=== PATIENT | female | born 1950 | race Caucasian/White ===

== ENCOUNTER 2019-11-27 13:26 | Day surgery (SDC) | payer MEDICARE, OTHER ==
[~2019-11-27] VITALS: Ht 157.5 cm; Wt 57.4 kg
[~2019-11-27 13:26] MED LIST: CALC-534 PO; MULT-658 PO; MV-M1TAB16 PO; ROPIvacaine/PF 0.5%, 30 ML ONE
[2019-11-27 14:26] VITALS: BP 145/76
[2019-11-27] MEDS ORDERED: LACTATED RINGERS 1,000 ML IV SCH (14:29)
[2019-11-27] MEDS ORDERED: FENTANYL PF 250 MCG/5ML ONE (15:30)
[2019-11-27] MEDS ORDERED: ACETAMINOPHEN 500 MG TABLET PO ONE (15:30)
[2019-11-27] MEDS ORDERED: ACETAMINOPHEN 500 MG TABLET ONE (15:30)
[2019-11-27] MEDS ORDERED: GABAPENTIN 300 MG CAPSULE PO ONE (15:30)
[2019-11-27] MEDS ORDERED: SCOPOLAMINE PATCH, 1.5MG PATCH.TD72 TD ONE ×2 (15:30)
[2019-11-27] MEDS ORDERED: MIDAZOLAM 1 MG/ML, 2ML ONE (15:30)
[2019-11-27] MEDS ORDERED: GABAPENTIN 300 MG CAPSULE ONE (15:31)
[2019-11-27] MEDS ORDERED: PROPOFOL 10 MG/ML, 20ML ONE (15:32)
[2019-11-27] MEDS ORDERED: DEXAMETHASONE 4 MG/ML, 1ML ONE ×2 (15:32)
[2019-11-27] MEDS ORDERED: CEFAZOLIN 1,000 MG ONE (15:44)
[2019-11-27] MEDS ORDERED: SUCCINYLCHOLINE 20 MG/ML, 10ML ONE (15:52)
[2019-11-27] MEDS ORDERED: ALBUTEROL SULFATE 2.5 MG/3 ML NPPB PRN (16:00)
[2019-11-27] MEDS ORDERED: OXYcodone 5 MG/5 ML ORAL.SOL UDC PO PRN (16:00)
[2019-11-27] MEDS ORDERED: ONDANSETRON 2MG/ML, 2ML IV PRN (16:00)
[2019-11-27] MEDS ORDERED: ONDANSETRON ODT 8 MG PO PRN (16:00)
[2019-11-27] MEDS ORDERED: hydrALAzine 20 MG/ML, 1ML IV PRN (16:00)
[2019-11-27] MEDS ORDERED: HYDROmorphone 2 MG/ML, 1ML IVPush PRN (16:00)
[2019-11-27] MEDS ORDERED: MEPERIDINE/PF 25MG/ML,1ML IVPush PRN (16:00)
[2019-11-27] MEDS ORDERED: HALOPERIDOL 5 MG/ML IV PRN (16:00)
[2019-11-27] MEDS ORDERED: LABETALOL 5MG/ML, 20ML IV PRN (16:00)
[2019-11-27] MEDS ORDERED: EPHEDRINE 50 MG/ML, 1ML IVPush PRN (16:00)
[2019-11-27] MEDS ORDERED: PROMETHAZINE 12.5 MG SUPP PR PRN (16:00)
[2019-11-27] MEDS ORDERED: PROMETHAZINE 25 MG/ML, 1ML IV PRN (16:00)
[2019-11-27] MEDS ORDERED: DIAZEPAM 5 MG/ML, 2ML IVPush PRN (16:00)
[2019-11-27] MEDS ORDERED: MIDAZOLAM 1 MG/ML, 2ML IV PRN (16:00)
[2019-11-27] MEDS ORDERED: KETOROLAC 30 MG/1 ML ONE (16:42)
[2019-11-27] MEDS ORDERED: OXYcodone 5 MG/5 ML ORAL.SOL UDC ONE (16:45)
[2019-11-27] MEDS ORDERED: FENTANYL PF 100 MCG/2ML ONE (16:45)
[2019-11-27] MEDS: FENTANYL PF 100 MCG/2ML IV PRN ×2 (16:47→16:53)
[2019-11-27] MEDS ORDERED: KETOROLAC 30 MG/1 ML IVPush ONE (17:00)
== END 2019-11-27 18:20 | disposition home or self-care (01) ==
LOC: OR 13:26
PROVIDERS: ATTEND Orthopaedic Surgery
DX: S83.242A Other tear of medial meniscus, current injury, left knee, initial encounter (principal); F15.90 Other stimulant use, unspecified, uncomplicated; Z90.49 Acquired absence of other specified parts of digestive tract; Z98.890 Other specified postprocedural states; Z87.891 Personal history of nicotine dependence; X58.XXXA Exposure to other specified factors, initial encounter; Y93.89 Activity, other specified; Y92.89 Other specified places as the place of occurrence of the external cause; Y99.8 Other external cause status
CPT/HCPCS: 29881; J0330; J0690; J1100; J1885; J2250; J2704; J2795; J3010; J7120